=== PATIENT | female | born 2005 | race Caucasian/White ===

== ENCOUNTER 2025-02-11 20:35 | Emergency (ER) | payer BC, SELFPAY ==
[2025-02-11] VITALS (14 sets, daily range): BP systolic 121–143; BP diastolic 80–99; PULSE 86–115; RESP 0–36; TEMP 36.4; O2SAT 95–100; BMI 20.2
--- NOTE | 2025-02-11 22:14 | ED.GENADULT ---
HPI - General Adult General Chief complaint: Anxiety Stated complaint: Rapid heartrate, tingling in limbs, blurred vision Time Seen by Provider: 02/11/25 22:14 History of Present Illness HPI narrative: Arrives complaining of a mystery illness for the past 5 years that my doctors can't figure out. States she feels shakiness , fatigue, muscle weakness , and frequent nausea and vomiting. Currently wearing a Holter monitor. Alert and oriented, ABCs intact at this time. 19-year-old woman presenting to the emergency depar tment with concern of passing out. Fabi experienced her heart pounding and stabbing in her arms and ended up vomiting. Historically can be also week extremities with this. Apparently has had visits through the emergency department as well as seen Neurology. Has had head imaging in the past. 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 Not thought to have POTS but is currently being monitored with a ZIO patch. Can spontaneously pass out. Not necessarily orthostatic. Notes that does experience tachycardia and that resting heart rate is in the 120s. Is worried is that might at some point. Grandmother has a seizure disorder Has had extensive evaluations for and for episodes where she can have rapid heart rate. Have a history panic attacks but says that this is not that; that her panic attacks are much worse. Reviewing workup in the past again denies that has had any head imaging only noting an EKG. We decided to proceed with basic head CT at that point. Review of records later reveals normal MRI of the brain just under a year ago. Related Data Home Medications ?Medication ?Instructions ?Recorded ?Confirmed hydroxyzine HCl 10 mg tablet 10 mg PO QHS 02/11/25 02/11/25 omeprazole 20 mg capsule,delayed 20 mg PO DAILY 02/11/25 02/11/25 release ondansetron HCl 4 mg tablet 4 mg PO Q8-12H PRN 02/11/25 02/11/25 propranolol 10 mg tablet 10 mg PO BID 02/11/25 02/11/25 quetiapine 100 mg tablet (Seroquel) 100 mg PO DAILY 02/11/25 02/11/25 spironolactone 100 mg tablet 100 mg PO DAILY 02/11/25 02/11/25 (Aldactone) venlafaxine PO 02/11/25 Allergies Allergy/AdvReac Type Severity Reaction Status Date / Time No Known Drug Allergies Allergy Verified 02/11/25 20:59 Review of Systems Status of ROS: Reports: 6 or more systems reviewed and unremarkable except as noted in History and below Exam Narrative: Exam Narrative: Pleasant. Tall. Numerous facial piercings. Skin is warm and dry. Mildly elevated heart rate to just tachycardic. Regular rhythm. Skin is warm and dry. Well-perfused. Lungs are clear. Cranial nerves 2-12 intact. Const: Vital Signs, click to edit/add: Vital Signs - 24 hr 02/11/25 20:54 02/11/25 21:06 02/11/25 21:43 Temperature 97.5 F L Pulse Rate 95 Pulse Rate [Left P ulse Oximeter] Pulse Rate [Pulse Oximeter] 102 H Pulse Rate [orthos tatic sitting Left Pulse Oximeter] Pulse Rate [orthos tatic standing Lef t Pulse Oximeter] Respiratory Rate 20 16 Blood Pressure Blood Pressure [Ri ght Upper Arm] 135/97 H Blood Pressure [or thostatic lying Ri ght Arm] Blood Pressure [or thostatic sitting Right Arm] Blood Pressure [or thostatic standing Right Arm] Pulse Oximetry 96 97 99 Oxygen Delivery Me thod Room Air 02/11/25 22:00 02/11/25 22:01 02/11/25 22:30 Temperature Pulse Rate 87 86 101 H Pulse Rate [Left P ulse Oximeter] Pulse Rate [Pulse Oximeter] Pulse Rate [orthos tatic sitting Left Pulse Oximeter] Pulse Rate [orthos tatic standing Lef t Pulse Oximeter] Respiratory Rate 26 H 18 16 Blood Pressure 121/85 Blood Pressure [Ri ght Upper Arm] Blood Pressure [or thostatic lying Ri ght Arm] Blood Pressure [or thostatic sitting Right Arm] Blood Pressure [or thostatic standing Right Arm] Pulse Oximetry 95 96 98 Oxygen Delivery Me thod 02/11/25 22:31 02/11/25 23:00 Temperature Pulse Rate 104 H Pulse Rate [Left P ulse Oximeter] 98 Pulse Rate [Pulse Oximeter] Pulse Rate [orthos tatic sitting Left Pulse Oximeter] 102 H Pulse Rate [orthos tatic standing Lef t Pulse Oximeter] 115 H Respiratory Rate 9 L Blood Pressure 130/99 H Blood Pressure [Ri ght Upper Arm] Blood Pressure [or thostatic lying Ri ght Arm] 131/80 Blood Pressure [or thostatic sitting Right Arm] 132/88 Blood Pressure [or thostatic standing Right Arm] 143/99 H Pulse Oximetry 96 Oxygen Delivery Me thod Documenting provider has reviewed patient's vital signs: yes Course Vital Signs Vital signs: Initial Vital Signs Temperature 97.5 F L 02/11/25 20:54 Temperature Source Temporal Artery Scan 02/11/25 20:54 Pulse Rate 102 H 02/11/25 20:54 Respiratory Rate 20 02/11/25 20:54 Respiratory Effort Normal, Spontaneous, Non-Labored 02/11/25 20:54 Respiratory Depth Normal 02/11/25 20:54 Respiratory Pattern Normal 02/11/25 20:54 Blood Pressure 135/97 H 02/11/25 20:54 Blood Pressure Mean 109 H 02/11/25 20:54 Pulse Oximetry 96 02/11/25 20:54 Oxygen Delivery Method Room Air 02/11/25 20:54 Vital Signs Temperature 97.5 F L 02/11/25 20:54 Pulse Rate 102 H 02/11/25 20:54 Respiratory Rate 20 02/11/25 20:54 Blood Pressure 135/97 H 02/11/25 20:54 Pulse Oximetry 96 02/11/25 20:54 Oxygen Delivery Method Room Air 02/11/25 20:54 Temperature 97.5 F L 02/11/25 20:54 Pulse Rate 93 02/12/25 00:02 Respiratory Rate 23 02/11/25 23:03 Blood Pressure 115/69 02/12/25 00:02 Pulse Oximetry 99 02/12/25 00:02 Oxygen Delivery Method Room Air 02/11/25 20:54 Medications Administered Medications: Discontinued Medications Generic Name Dose Route Start Last Admin Trade Name Freq PRN Reason Stop Dose Admin Sodium Chloride 1,000 mls @ 1,000 mls/hr 02/11/25 22:29 02/12/25 00:12 0.9 % Sodium Chloride 1000 Ml IV 02/11/25 23:28 Infused .Q1H ONE Infusion Medical Decision Making MDM Narrative Medical decision making narrative: I discussed initially that doubtful that will be able to offer more information during this time in the emergency department. Concerning monitor though for safety/stability. And look for evidence of recent cardiac injury. Orthostatics are symptomatic but negative. With orthostatic complaints is given a L normal saline. With information initially obtained that was without recent head imaging decided to proceed with this. Discovered later relatively recent MRI. Head CT independently reviewed by me looks to be without abnormality. Radiology over-read confirms. Mildly elevated white count in labs but otherwise unremarkable. No events during time in the emergency department. See patient discharge plan for further discussion Stay well-hydrated. Please follow-up your primary care clinic further investigation. Turn in your ZIO patch as planned. Was a pleasure caring for you today. Medical Records Medical records reviewed: Yes I reviewed the patient's medical records Lab Data Lab results reviewed: Yes I reviewed the patient's lab results Labs: Lab Results 02/11/25 02/11/25 Range/Units 22:28 22:40 WBC 11.58 H (4.50-11.00) K/uL RBC 4.86 (4.00-5.20) m/uL Hgb 14.9 (12.0-16.0) gm/dL Hct 43.3 (33.0-51.0) % MCV 89 (80-100) fL MCH 31 (26-34) pg MCHC 34 (32-36) gm/dL RDW Coeff of Ronal 12.2 (11.5-15.5) % Plt Count 303 (140-440) K/uL Neut % (Auto) 66.1 (42.0-72.0) % Lymph % (Auto) 23.1 (20-44) % Garden % (Auto) 9.4 (0.0-11.0) % Eos % (Auto) 0.3 (0.0-7.0) % Baso % (Auto) 0.2 (0.0-3.0) % Neut # (Auto) 7.70 H (1.7-7.0) K/uL Lymph # (Auto) 2.70 (0.90-2.90) K/uL Garden # (Auto) 1.10 H (0.00-0.90) K/UL Eos # (Auto) 0.00 (0.00-0.50) K/uL Baso # (Auto) 0.00 (0.00-0.30) K/uL Abs Immat Gran (auto) 0.10 (0.00-0.30) K/uL Imm/Tot Granulo (auto) 0.9 % Sodium 136 (135-149) mmol/L Potassium 3.7 (3.6-5.1) mmol/L Chloride 99 (96-114) mmol/L Carbon Dioxide 29 (20-32) mmol/L Anion Gap 8 (7-15) mEq/L BUN 10 (5-24) mg/dL Creatinine 0.7 (0.5-1.5) mg/dL Estimated Creat Clear 133.11 Estimated GFR 127 ml/min Glucose 101 (60-115) mg/dL Calcium 9.7 (8.4-10.6) mg/dL Troponin I < 0.01 (0.01-0.04) ng/mL POC Troponin I 0.00 L (0.01-0.04) ng/ml Discharge Plan Discharge Clinical Impression: Tachycardia, Orthostatic tremor Patient Disposition: Home w/ Parent or Adult Condition: Improved Additional Instructions: Stay well-hydrated. Please follow-up your primary care clinic further investigation. Turn in your ZIO patch as planned. Was a pleasure caring for you today. Prescriptions: No Action venlafaxine [Effexor XR] PO quetiapine [Seroquel] 100 mg tablet 100 mg PO DAILY propranolol 10 mg tablet 10 mg PO BID hydroxyzine HCl 10 mg tablet 10 mg PO QHS omeprazole 20 mg capsule,delayed release(DR/EC) 20 mg PO DAILY spironolactone [Aldactone] 100 mg tablet 100 mg PO DAILY ondansetron HCl 4 mg tablet 4 mg PO Q8-12H PRN Follow Up/Referrals: Provider,Not a Local [Non-Staff, Family Practice] Stand Alone Forms: [email or web address] Info Instructions
--- OUTSIDE RECORDS SUMMARY | 2025-02-11 22:45 | XMS_ITS | Encounter Summary ---
Author Organization [facility] Address [address] [place] [address] Care Team Providers Care Stores Clerk Name Role Phone Unavailable Primary Care Provider Unavailabl e Encounter Details Date Type Department Care Team (Late st Contact Info) Description 08/22/2024 Orders Only Division of Endocrinology in [place], [place] [address] [place] [address] [facility], Provider, Gender Incongruence, Unspecified Social History Tobacco Use Types Packs/Day Years Used Date Smoking Tobacco: Never Passive Smoke Exposure: Never PHQ-2 Answer Date Recorded PHQ-2 Score 2 05/14/2023 Depression Answer Date Recor ded PHQ-9 Total Score (max 27) 11 05/14 Nutrition Answer Date Recorded Nutrition: EVOO Fat Source Unknown 12/14 Nutrition: Servings of Fruits/Vegetables per Day Not on file 12/14/2022 Dental Answer Date Recorded Dental: Regular Dentist Unknown 12/15/19 Sex and Gender Information Value Date Recorded Sex Assigned at Male 03/23/2023 11:02 AM CDT Legal Sex Female 8:29 AM CDT Gender Identity Transgender Female 03/23/2023 11 :02 AM CDT Sexual Orientation Bisexual 03/23/2023 11 :02 AM CDT documented as of this encounter Plan of Treatment Not on file documented as of this encounter Visit Diagnoses Diagnosis Gender Incongruence, Unspecified documented in this encounter Additional Health Concerns Assessment Noted Time PHQ-9 Depression Total Score: 11 023 1:07 PM CDT documented as of this encounter
--- OUTSIDE RECORDS SUMMARY | 2025-02-11 22:45 | XMS_ITS | Clinical Summary ---
Author Organization [facility] Address [address] [place] [address] Care Team Providers Care Dentist Private Practice Name Role Phone Unavailable Primary Care Provider Unavailabl e Source Comments Patient records contain information from all sites at [facility]. For routine questions regarding patient records, call [phone] during business hours, M-F 8:00 AM - 5:00 PM Central Time. Record requests for emergency care only can be directed to [phone] at any time.[facility] Medications venlafaxine XR (EFFEXOR-XR) 150 mg 24 hr capsuleIndicati ons:Anxiety Take 1 capsule (150 mg total) by mouth daily with breakfast. 90 capsule 1 05/14/2023 Active venlafaxine XR (EFFEXOR-XR) 75 mg 24 hr capsuleIndicati ons:Anxiety Take 1 capsule (75 mg total) by mouth daily with breakfast. 90 capsule 1 05/14/2023 Active QUEtiapine (SEROquel) 50 mg tabletIndicatio ns:Anxiety Take 1 tablet (50 mg total) by mouth at bedtime. 90 tablet 1 05/14/2023 Active hydrOXYzine (VISTARIL) 25 mg capsuleIndicati ons:Anxiety Take 1 capsule (25 mg total) by mouth 3 (three) times a day as needed for anxiety. 90 capsule 3 05/14/2023 Active Active Problems Problem Noted Date Diagnosed Date Obesity Body Mass Index 30-39.9 Adult 05/14/2023 Social History Tobacco Use Types Packs/Day Years Used Date Smoking Tobacco: Never Passive Smoke Exposure: Never Tobacco Cessation:Counseling Given: Not Answered PHQ-2 Answer Date Recorded PHQ-2 Score 2 [...] Orientation Bisexual 03/23/2023 11 :02 AM CDT Last Filed Vital Signs Vital Sign Reading Time Taken Comments Blood Pressure 110/72 05/14/2023 1:03 PM CDT Pulse 105 05/14/2023 1:03 PM CDT Temperature 36.4 C (97.6 F) 05/14/2023 1:03 PM CDT Respiratory Rate 16 05/14/2023 1:03 PM CDT Oxygen Saturation - - Inhaled Oxygen Concentration - - Weight 95.7 kg (210 lb 15.7 oz) 05/14/2023 1:03 PM CDT Height 176 cm (5' 9.29) 05/14/2023 1:03 PM CDT Body Mass Index 30.9 05/14/2023 1:03 PM CDT Plan of Treatment Health Maintenance Due Date Last Done Comments TB Screening during Well Child Visit 2004 Tobacco Cessation counseling 2004 1 week Well Child Check-Up 2004 1 month Well Child Check-Up 2004 2 month Well Child Check-Up 2004 4 month Well Child Check-Up 2004 9 month Well Child Check-Up 04/30/2005 15 month Well Child Check-Up 10/31/2005 18 month Well Child Check-Up 01/28/2006 2 year Well Child Check-Up 07/31/2006 30 month Well Child Check-Up 01/28/2007 3 year Well Child Check-Up 07/31/2007 Well Child Check-Up Completed in Past Year 07/31/2007 5 year Well Child Check-Up 07/31/2009 6 year Well Child Check-Up 07/31/2010 7 year Well Child Check-Up 07/31/2011 8 year Well Child Check-Up 07/31/2012 10 year Well Child Check-Up 07/31/2014 12 year Well Child Check-Up 07/31/2016 13 year Well Child Check-Up 07/31/2017 14 year Well Child Check-Up 07/31/2018 Vision Screening during Well Child Visit 2018 15 year Well Child Check-Up 07/31/2019 16 year Well Child Check-Up 08/26/2020 17 year Well Child Check-Up 07/31/2021 18 year Well Child Check-Up 07/31/2022 19 year Well Child Check-Up 07/31/2023 20 year Well Child Check-Up 07/31/2024 Well Child Check-Up ([facility]) 07/31/2024 Depression Screening (Annual PHQ-2) 09/06/2024 Glucose Test for Med Monitoring 08/09/2025 08/09/2024, 12/27/2023, 12/22/2023, Additional history exists DTaP,Tdap,and Td Vaccines (7 - Td or Tdap) 04/12/2027 04/12/2017, 11/13/2009, 03/11/2006, Additional history exists Hepatitis B Vaccines Completed 03/13/2005, 2004, 2004 Pneumococcal vaccine (0-49 years) Aged Out 03/11/2006, 03/13/2005, 2004, Additional history exists No longer eligible based on patient's age to complete this topic IPV Vaccines Completed 11/13/2009, 04/2005, 2004, Additional history exists HPV Vaccines Completed 05/12/2019, 04/12/2017 Meningococcal Vaccine Completed 11/08/2020, 017 HIV Screening Completed 05/14/2023 Hepatitis C Screening Completed 05/14/2023 COVID-19 Vaccine Completed 06/28/2024, , 02/18/2021, Additional history exists Influenza Vaccine Completed 06/28/2024, , 07/06/2013, Additional history exists Anemia/Iron Deficiency Screening During Well Child Visit (if High Risk Menstruating Female) Completed 11/28/2024, 08/09/2024, 04/25/2024, Additional history exists Procedures Procedure Name Priority Date/Time Associated Diagnosis Comments HCV AB SCRN W/REFLEX TO HCV PCR, S Routine 05/14/2023 2:04 PM CDT Screening Test Laboratory HIV-1/-2 AG AND AB SCREEN, PLASMA Routine 05/14/2023 2:04 PM CDT Human Immunodeficiency Virus Screening HEMOGLOBIN A1C, B Routine 05/14/2023 2:0 4 PM CDT Screening Examination Diabetes Mellitus from Last 3 Months or Most Recently Relevant to Health Maintenance Results * HIV-1/-2 Ag and Ab Screen, Plasma (05/14/2023 2:04 PM CDT) Pathologist [facility] HIV Ag/Ab Screen, P Negative Negative 05/17/2023 11:46 AM CDT [facility] Comment: Negative result does not rule out HIV infection. If exposure to HIV infection occurred <14 days ago, contact the laboratory to request addition of HIV-1/HIV-2 RNA detection, Plasma (HIP12). HIV-1 p24 Ag Screen, P Negative Negative 05/17/2023 11:46 AM CDT [facility] Comment: Negative result does not rule out HIV infection. If exposure to HIV infection occurred <14 days ago, contact the laboratory to request addition of HIV-1/HIV-2 RNA detection, Plasma (HIP12). HIV-1 Ab Screen, P Negative Negative 05/17/2023 11:46 AM CDT [facility] Comment: Negative result does not rule out HIV infection. If exposure to HIV infection occurred <14 days ago, contact the laboratory to request addition of HIV-1/HIV-2 RNA detection, Plasma (HIP12). HIV-2 Ab Screen, P Negative Negative 05/17/2023 11:46 AM CDT [facility] Comment: Negative result does not rule out HIV infection. If exposure to HIV infection occurred <14 days ago, contact the laboratory to request addition of HIV-1/HIV-2 RNA detection, Plasma (HIP12). Blood (Blood, Venous) 05/14/2023 2:04 PM CDT 05/15/2023 4:05 PM CDT Mirella Uribe M.D. LAB MICROBIOLOGY - BLOOD O RDERABLES Final Result Performing Organization Address [facility]/ZIP Co de Phone Number [facility] [address] [place] [address], [facility] [place] [address] [place] [address] * HCV Ab Scrn w/Reflex to HCV PCR, Serum (05/14/2023 2:04 PM CDT) HCV Ab Screen, S Negative Negative 05/14/20 7:29 PM CDT [facility] Comment: Biotin has been identified by the typewriter ribbon winder as a potential interfering substance. Higher concentrations of biotin may be found in multivitamins, hair/nail supplements, and workout supplements. If the result does not match clinical observations, repeat testing after patient refrains from the use of supplements for at least 12 hours. Blood (Blood, Venous) 05/14/2023 2:04 PM CDT 05/14/2023 7:02 PM CDT [facility] LAB - 05/14/2023 7:29 PM CDT Specimen Information: Specimen ID: [id number] Specimen Type: Blood Specimen Collection Start Date: 05/14/2023 2:04 PM Specimen Received Date: 05/14/2023 7:02 PM Specimen ID: [id number] Specimen Type: Blood Specimen Collection Start Date: 05/14/2023 2:04 PM Specimen Received Date: 05/14/2023 7:02 PM Mirella Uribe M.D. LAB MICROBIOLOGY - BLOOD O RDERABLES Final Result [facility] [address] [place] [address], [facility] in [place] [address] [place] [address] * Hemoglobin A1c (05/14/2023 2:04 PM CDT) Hemoglobin A1c, B 5.0 4.2 - 5.6 % 05/14/2023 2:56 PM CDT [facility] Blood (Blood, Venous) 05/14/2023 2:04 PM CDT 05/14/2023 2:09 PM CDT us Mirella Uribe M.D. LAB BLOOD ADD-ON Final Res ult [facility] [address] [place] [address], [place] [facility] in [place] [address] [place] [address] from Last 3 Months or Most Recently Relevant to Health Maintenance Insurance [facility]
--- OUTSIDE RECORDS SUMMARY | 2025-02-11 22:45 | XMS_ITS | Clinical Summary ---
Author Organization [facility] Address [address] [place] [id number] Care Team Providers Care Sheltered Workshop Executive Director Name Role Phone Eben Wen MD Primary Care Provider [phone] Serene Hagen Ahsan Allergies No known active allergies Medications ondansetron (ZOFRAN ODT) 4 mg disintegrating tabletIndications: Nausea Place 1 Tablet (4 mg) on the tongue every 8 hours if needed for Nausea/Vomit ing. 15 Tablet 4 Active omeprazole 20 mg tabletIndications: Nausea,Elevated liver enzymes,Nausea and vomiting, unspecified vomiting type,Acute gastritis, presence of bleeding unspecified, unspecified gastritis type Take 1 Tablet (20 mg) by mouth once daily. 90 Tablet 3 4 Active QUEtiapine (SEROQUEL) 50 mg tabletIndications: Trauma and stressor-related disorder,Episode of recurrent major depressive disorder, unspecified depression episode severity,Generaliz ed anxiety disorder with panic attacks Take 1 Tablet (50 mg) by mouth at bedtime. 90 Tablet 3 4 Active polyethylene glycoL (MIRALAX) 17 gram/scoop powderIndications: Rectal bleeding,Rectal trauma, initial encounter Mix 1 scoop (17 g) in liquid then take by mouth once daily. 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 90 Tablet 1 5 Active propranoloL 10 mg tabletIndications: Generalized anxiety disorder with panic attacks Take 1 tablet three times a day for anxiety 90 Tablet 1 5 Active hydrOXYzine pamoate 25 mg capsuleIndications :Trauma and stressor-related disorder,Generaliz ed anxiety disorder with panic attacks Take 1 Capsule (25 mg) by mouth 3 times daily if needed for Anxiety. 30 Capsule 3 5 Active venlafaxine 150 mg Extended-Release capsuleIndications :Trauma and stressor-related disorder,Generaliz ed anxiety disorder with panic attacks,Episode of recurrent major depressive disorder, unspecified depression episode severity Take 1 Capsule (150 mg) by mouth once daily in the morning. With 75 mg dose for a total AM dose of 225 mg 90 Capsule 3 5 Active venlafaxine 75 mg cp24 Extended-Release capsuleIndications :Trauma and stressor-related disorder,Generaliz ed anxiety disorder with panic attacks,Episode of recurrent major depressive disorder, unspecified depression episode severity Take 1 Capsule (75 mg) by mouth once daily with a meal. 90 Capsule 3 5 Active hydrOXYzine pamoate (VISTARIL) 25 mg capsuleIndications :Trauma and stressor-related disorder,Generaliz ed anxiety disorder with panic attacks Take 1 Capsule (25 mg) by mouth 3 times daily if needed for Anxiety. 30 Capsule 3 4 025 Discontin ued(Reord er (E-cancel not sent)) venlafaxine (EFFEXOR XR) 150 mg Extended-Release capsuleIndications :Trauma and stressor-related disorder,Episode of recurrent major depressive disorder, unspecified depression episode severity,Generaliz ed anxiety disorder with panic attacks Take 1 Capsule (150 mg) by mouth once daily in the morning. With 75 mg dose for a total AM dose of 225 mg 90 Capsule 3 4 025 Discontin ued(Reord er (E-cancel not sent)) venlafaxine (EFFEXOR XR) 75 mg cp24 Extended-Release capsuleIndications :Trauma and stressor-related disorder,Episode of recurrent major depressive disorder, unspecified depression episode severity,Generaliz ed anxiety disorder with panic attacks Take 1 Capsule (75 mg) by mouth once daily with a meal. 90 Capsule 3 4 025 Discontin ued(Reord er (E-cancel not sent)) Active Problems Problem Noted Date Diagnosed Date DELIA (generalized anxiety disorder) w panic attac ks 11/30/2024 MDD (major depressive disord er), recurrent episode, moderate 11/30/2024 Autism spectrum disorder 11/28/2024 Convulsions, unspecified convulsion type 024 Hypercholesterolemia 03/25/2022 History of gender dysphoria 09/11/2021 PTSD (post-traumatic stress disorder) 05/16/2021 Dujm-ct-xjvyfl transgender person 05/16/2021 Suicide attempt 05/15/2021 Anorexia 05/15/2021 Bulimia 05/15/2021 Acetaminophen toxicity, inte ntional self-harm, initial encounter 05/13/2021 Epigastric abdominal pain 05/13/2021 Has status as emancipated minor 05/13/2021 Current severe episode of ma lucio depressive disorder without psychotic features without prior episode Resolved Problems Problem Noted Date Diagnosed Date Resolved Date Asperger's syndrome 06/26/2024 11/29/19 Gynecomastia 03/12/2022 11/28/2024 NSAID overdose, intentional self-harm, initial encounter 05/13/2021 11/28/2024 Hypokalemia 05/13/2021 11/28/2024 Hypermetropia 06/01/2012 05/13/2021 No active medical problems 05/30/2012 0 05/13/2021 Encounters Date Type Department Care Team Description 02/08/2025 2:30 PM CDT Telemedicine [address] [phone] Hawa Zeng PsyD, LP Telehealth; Anxiety; Depression 02/08/2025 Travel 02/06/2025 10:10 AM CDT Office Visit [address] [phone] Eben Wen MD Follow Up (From Dr. Cobos last apt) 02/06/2025 Travel 01/15/2025 2:30 PM CDT Telemedicine [address] [phone] Hawa Zeng PsyD, JUANITA Telehealth; Anxiety; Depression; Psychiatric Problem; MH Trmt Plan 01/15/2025 Travel 12/22/[address] [place] [address] Hawa Zeng PsyD, JUANITA Form 12/19/2024 3:00 PM CDT Office Visit [address] [place] [address] Mariann Villalba MD Follow Up; Breast Problem (Lump in right breast, about a quarter size, occasionally painful, noticed it last night, smaller lump in left breast that is painful) 12/19/2024 Travel 11/29/2024 2:45 PM CDT Telemedicine [address] [place] [address] Hawa Zeng PsyD, JUANITA Telehealth; Mental Health Intake; Anxiety; Depression 11/29/2024 Travel 11/28/2024 10:15 AM CDT Office Visit [address] [place] [phone] Mariann Villalba MD Follow Up (Gender care) 11/28/2024 Travel 11/23/2024 Travel from Last 3 Months Immunizations Immunization Administration Dates Next Due COVID-19 VACCINE SPIKEVAX (M ODERNA 50MCG/0.5ML) 12YO+ PFS 06/28/2024 COVID-19 vaccine (Pfizer-Bio NTech 30mcg/0.3mL) 12YO+ JIMMIE-SUCROSE PF, MDV 05/04/2022 DTaP-HIB (TriHIBIT) 03/11/2006 RFuU-BtyC-QJO (Pediarix) 03/13/2005,2004,0 2004 DTaP-IPV (Kinrix) 11/13/2009 HIB PRP-OMP (PedvaxHIB) 2004,2004 HPV 9 (Gardasil 9) 05/12/2019,04/12/2017 Hepatitis A (Peds) 04/12/2017,05/30/2012 INFLUENZA, IIV3 PF (AGE >= 6 MO) 06/28/2024 Influenza Virus, Unspecified 07/06/2013 Influenza, IIV3 (Age 6-35 mos) 07/10/2005,2004 Influenza, IIV3 (Age >=3 years) 05/30/2012,07/02 Influenza, IIV4 07/10/2021 MENINGOCOCCAL VACCINE 2 VIAL 2MO-55YO (MENVEO) 11/08/2020,04/12/2017 MMR 11/13/2009,10/07/2005 Pneumococcal conj 7-Valent (Prevnar 7) 0 03/11/2006,03/13/2005,2004,10/31 Tdap 04/12/2017 Varicella Vaccine 11/13/2009,10/07/2005 Family History Medical History Relation Name Comments Suicidality Father Relation Name Status Comments Father Mother Alive Sister Alive Social History Tobacco Use Types Packs/Day Years Used Date Smoking Tobacco: Never Passive Smoke Exposure: Yes Smokeless Tobacco: Never Tobacco Cessation:Counseling Given: Yes Alcohol Use Standard Drinks/Week Comments No 0 (1 standard drink = 0.6 oz pur e alcohol) PHQ-2 Answer Date Recorded PHQ-2 TOTAL SCORE 4 02/08/2025 Social Connections Answer Date Recorded Do you often feel lonely or isolated from those around you? 4 02/06/2025 Financial Resource Strain Answer Date R ecorded Difficulty of Paying Living Expenses 1 02/06/2025 Difficulty of Paying Living Expenses 2 02/06/2025 Food Insecurity Answer Date Recorded Do you worry your food will run out before you are able to buy more? 2 02/06/2025 Transportation Needs Answer Date Record ed Does lack of transportation keep you from medica l appointments? 1 02/06/2025 Does lack of transportation keep you from work, meetings or getting things that you need? 1 02/06/2025 Housing Stability Answer Date Recorded What is your housing situation today? 2 02/06/2025 Interpersonal Safety Answer Date Record ed Are you being hit, kicked, p ushed or yelled at (see row info)? No 04/25/2024 Interpersonal Safety Abuse 12 - 18 Not on file 04/25/2024 Interpersonal Safety Ambulatory Vulnerability No t on file 04/25/2024 Utilities Answer Date Recorded Do you have trouble paying f or utilities (for example, heat, electricity, water, phone)? 2 02/06/2025 Sex and Gender Information Value Date Recorded Sex Assigned at Male 12/22/2023 1:29 PM CDT Legal Sex Female 1:29 PM CDT Gender Identity Not on file Sexual Orientation Not on file Occupation Industry Job Start Date Job End Date [employer] - Not on file Not on fi le Not on file Obstetrics History Last Filed Vital Signs Vital Sign Reading Time Taken Comments Blood Pressure 118/70 02/06/2025 10:08 AM CDT Pulse 96 02/06/2025 10:08 AM CDT Temperature 36.7 C (98 F) 04/25/2024 9:54 PM CDT Respiratory Rate 18 04/25/2024 9:54 PM CDT Oxygen Saturation 99% 02/06/2025 10:08 AM CDT Inhaled Oxygen Concentration - - Weight 68.9 kg (152 lb) 02/06/2025 10:08 AM CDT Height 178 cm (5' 10.08) 02/06/2025 10:08 AM CD T Body Mass Index 21.76 02/06/2025 10:08 AM CDT Plan of Treatment Upcoming Encounters Date Type Department Care Team (Late st Contact Info) Description 02/21/2025 11:45 AM CDT Telemedicine [facility] [address] [place] [phone] Hawa Zeng, Reynaldo, LP [address] [place] [address] Health Maintenance Due Date Last Done Comments Well Child Check for age 3-20 12/26/2024 12/27/2023, 05/12/2019, 04/12/2017, Additional history exists BMI (ht and wt on same day) for age 18+ 02/06/2026 02/06/2025, 05/16/2024, 02/18/2024, Additional history exists Depression screening for age 12+ 02/08/2026 02/08/2025, 01/15/2025, 11/29/2024, Additional history exists Tetanus booster 04/12/2027 04/12/2017 Hepatitis B series for 19+ Completed 03/13, 2004, 2004 Pneumococcal series for age 6-49 Aged Out 03/11/2006, 03/13/2005, 2004, Additional history exists No longer eligible based on patient's age to complete this topic Tdap Completed 04/12/2017 HPV series for age 9-26 Completed 05/12/2019, 04/12 HPV series for age 9-26 Completed 05/12/2019, 04/12 Meningococcal series for age 11-21 Completed 11/08/2020, 04/12/2017 COVID-19 vaccine series Completed 06/28/20, 05/04/2022, 02/18/2021, Additional history exists Influenza Vaccine Completed 06/28/2024, , 07/06/2013, Additional history exists HIV for age 15-65 Completed 08/09/2024 Hepatitis C screening for age 18-79 Completed 08/09/2024 Procedures Procedure Name Priority Date/Time Associated Diagnosis Comments BASIC METABOLIC PANEL Routine 02/06/2025 11:25 AM CDT Convulsions, unspecified convulsion type (HC) Yzwk-qx-stgcpo transgender person ANTINUCLEAR ANTIBODY BY IFA Routine 02/06/2025 11:25 AM CDT Convulsions, unspecified convulsion type (HC) SEDIMENTATION RATE Routine 02/06/2025 11 :25 AM CDT Convulsions, unspecified convulsion type (HC) C-REACTIVE PROTEIN Routine 02/06/2025 11 :25 AM CDT Convulsions, unspecified convulsion type (HC) EXTENDED HOLTER Routine 02/06/2025 11:02 AM CDT Syncope and collapse HEMOGLOBIN Routine 11/28/2024 11:20 AM CDT Gender dysphoria Ysmf-dl-foslsh transgender person ESTRADIOL Routine 11/28/2024 11:20 AM CDT Gender dysphoria Iqzh-pn-ccvnte transgender person TESTOSTERONE,TOTAL Routine 11/28/2024 11 :20 AM CDT Gender dysphoria Hhml-ja-iepxid transgender person ANTI HIV 1/2 Routine 08/09/2024 2:44 PM SKI PATROL DIRECTOR Screening for HIV (human immunodeficiency virus) ANTI HCV Routine 08/09/2024 2:44 PM SKI PATROL DIRECTOR Need for hepatitis C screening test from Last 3 Months or Most Recently Relevant to Health Maintenance Results * SEDIMENTATION RATE (02/06/2025 11:25 AM CDT) SED RATE BY MODIFIED WESTERGREN 6 < OR = 20 mm/h [facility] [place] Blood BLOOD SPECIMEN / Unknown 02/06/2025 11:25 AM CDT 02/06/2025 11:26 AM CDT Eben Wen MD HEMATOLOGY Final Resul t Interactive [employer] [facility] [address] [place] [address], [facility] [address] [place] [address] * ANTINUCLEAR ANTIBODY BY IFA (02/06/2025 11:25 AM CDT) GREGORY SCREEN, IFA NEGATIVE NEGATIVE [facility] [place] Comment: GREGORY IFA is a first line screen for detecting the presence of up to approximately 150 autoantibodies in various autoimmune diseases. A negative GREGORY IFA result suggests an GREGORY-associated autoimmune disease is not present at this time, but is not definitive. If there is high clinical suspicion for Sjogren's syndrome, testing for anti-SS-A/Ro antibody should be considered. Anti-Meka-1 antibody should be considered for clinically suspected inflammatory myopathies. AC-0: Negative International Consensus on GREGORY Patterns (https://doi.org/10.1515/bntp-5046-9334) For additional information, please refer to http://education.Glowbl/faq/SOU424 (This link is being provided for informational/ educational purposes only.) Blood BLOOD SPECIMEN / Unknown 02/06/2025 11:25 AM CDT 02/06/2025 11:26 AM CDT Eben Wen MD CHEMISTRY Final Resul t [employer] [facility] [address] [place] [phone], [facility] [address] [place] [address] * C-REACTIVE PROTEIN (02/06/2025 11:25 AM CDT) C-REACTIVE PROTEIN <3.0 <8.0 mg/L [facility] [place] Blood BLOOD SPECIMEN / Unknown 02/06/2025 11:25 AM CDT 02/06/2025 11:26 AM CDT Eben Wen MD CHEMISTRY Final Resul t [employer] [facility] [address] [place] [phone], [facility] [address] [place] [phone] * BASIC METABOLIC PANEL (02/06/2025 11:25 AM CDT) GLUCOSE 69 65 - 99 mg/dL [facility] [place] Comment: Fasting reference interval UREA NITROGEN (BUN) 13 7 - 25 mg/dL [facility] [place] CREATININE 0.66 0.50 - 0.96 mg/dL [facility] [place] EGFR 129 > OR = 60 mL/min/1. 73m2 [facility] [place] BUN/CREATININE RATIO SEE NOTE: 6 - 22 (calc) [facility] [place] Comment: Not Reported: BUN and Creatinine are within reference range. SODIUM 139 135 - 146 mmol/L [facility] [place] POTASSIUM 4.3 3.5 - 5.3 mmol/L [facility] [place] CHLORIDE 101 98 - 110 mmol/L [facility] [place] CARBON DIOXIDE 31 20 - 32 mmol/L [facility] [place] ELECTROLYTE BALANCE 7 7 - 17 mmol/L (calc) [facility] [place] CALCIUM 10.0 8.6 - 10.2 mg/dL [facility] [place] Blood BLOOD SPECIMEN / Unknown 02/06/2025 11:25 AM CDT 02/06/2025 11:26 AM CDT us Eben Wen MD CHEMISTRY Final Resul t Performing Organization Address City/[facility]/ZIP Co de Phone Number [employer] [facility] [address] [place] [address], [place] [phone] [facility] [address] [place] [address] * HEMOGLOBIN (11/28/2024 11:20 AM CDT) HEMOGLOBIN 15.1 11.7 - 15.5 g/dL [facility] [place] Blood BLOOD SPECIMEN / Unknown 11/28/2024 11:20 AM CDT 11/28/2024 11:23 AM CDT Narrative [facility] - 11/29/2024 5:35 AM CDT FASTING:NO FASTING: NO us Mariann Villalba MD HEMATOLOGY Fin al Result [employer] [facility] [address] [place] [address], [place] [phone] [facility] [address] [facility] [place] [address] * (ABNORMAL) TESTOSTERONE,TOTAL (11/28/2024 11:20 AM CDT) TESTOSTERONE, TOTAL, MS 188(H) 2 - 45 ng/dL [facility] Comment: For additional information, please refer to https://education.ExtraFootie/faq/TotalTestosteroneLCMSMS (This link is being provided for informational/educational purposes only.) (Note) This test was developed and its analytical performance characteristics have been determined by [employer]. It has not been cleared or approved by the FDA. This assay has been validated pursuant to the CLIA regulations and is used for clinical purposes. [facility] [address] [address],[address] [place] [address] Zenon Gabriel MD, PhD Blood BLOOD SPECIMEN / Unknown 11/28/2024 11:20 AM CDT 11/28/2024 11:23 AM CDT [facility] - 12/01/2024 2:11 PM CDT FASTING:NO FASTING: NO Mariann Villalba MD CHEMISTRY Fin al Result [facility] [address] [place] [phone], [facility] [address] [place] [address], [address] [place] [address] * ESTRADIOL (11/28/2024 11:20 AM CDT) Pathologist [facility] ESTRADIOL 44 pg/mL [facility] [place] Comment: Reference Range Follicular Phase: 19-144 Mid-Cycle: 64-357 Luteal Phase: 56-214 Postmenopausal: < or = 31 Reference range established on post-pubertal patient population. No pre-pubertal reference range established using this assay. For any patients for whom low Estradiol levels are anticipated (e.g. males, pre-pubertal children and hypogonadal/post-menopausal females), the [facility] Estradiol, Ultrasensitive, LCMSMS assay is recommended (order code 14226). Please note: patients being treated with the drug fulvestrant (Faslodex(R)) have demonstrated significant interference in immunoassay methods for estradiol measurement. The cross reactivity could lead to falsely elevated estradiol test results leading to an inappropriate clinical assessment of estrogen status. [facility] order code [id number], Ultrasensitive LC/MS/MS demonstrates negligible cross reactivity with fulvestrant. Blood BLOOD SPECIMEN / Unknown 11/28/2024 11:20 AM CDT 11/28/2024 11:23 AM CDT Narrative [facility] - 11/29/2024 4:40 AM CDT FASTING:NO FASTING: NO Mariann Villalba MD SEND OUTS Fin al Result Performing Organization Address [facility]/ZIP Co de Phone Number Interactive [employer] [facility] [address] [facility] [address], [facility] [address] [facility] [place] [address] * ANTI HCV (08/09/2024 2:44 PM SKI PATROL DIRECTOR) HEPATITIS C ANTIBODY NON-REACTI VE NON-REACT SULTANA [facility] [place] Comment: HCV antibody was non-reactive. There is no laboratory evidence of HCV infection. In most cases, no further action is required. However, if recent HCV exposure is suspected, a test for HCV RNA (test code 93329) is suggested. For additional information please refer to http://education.ExtraFootie/faq/TCF53t2 (This link is being provided for informational/ educational purposes only.) Blood BLOOD SPECIMEN / Unknown 08/09/2024 2:44 PM SKI PATROL DIRECTOR 08/09/2024 2:45 PM SKI PATROL DIRECTOR Mariann Villalba MD SEND OUTS Fin al Result Performing Organization Address [facility]/ZIP Co de Phone Number [employer] [facility] [address] [facility] [place] [address], [place] [phone] [facility] [address] [facility] [place] [address] * ANTI HIV 1/2 [30389.0] (08/09/2024 2:44 PM SKI PATROL DIRECTOR) HIV AG/AB, 4TH GEN NON-REACT SULTANA NON-REACT SULTANA [facility] Comment: HIV-1 antigen and HIV-1/HIV-2 antibodies were not detected. There is no laboratory evidence of HIV infection. PLEASE NOTE: This information has been disclosed to you from records whose confidentiality may be protected by state law. If your state requires such protection, then the state law prohibits you from making any further disclosure of the information without the specific written consent of the person to whom it pertains, or as otherwise permitted by law. A general authorization for the release of medical or other information is NOT sufficient for this purpose. For additional information please refer to http://education.ExtraFootie/faq/ULG775 (This link is being provided for informational/ educational purposes only.) The performance of this assay has not been clinically validated in patients less than 2 years old. Blood BLOOD SPECIMEN / Unknown 08/09/2024 2:44 PM SKI PATROL DIRECTOR 08/09/2024 2:45 PM SKI PATROL DIRECTOR Mariann Villalba MD SEND OUTS Fin al Result [employer] [facility] [address] [place] [address], [facility] [address] [place] [phone] from Last 3 Months or Most Recently Relevant to Health Maintenance Insurance [id number] [id number] Advance Directives * Full Code (Latest Code Status on File) Date Activated Date Inactivated Comments 05/14/2021 12:03 AM 05/15/2021 12:34 AM Question Answer Comments Code Status Discussion: Not Discussed Care Teams Sheltered Workshop Executive Director Relationship Specialty Start Date End Date Eben Wen MD [address] [place] [address] PCP - General Family Practice 04/30/21 Serene Hagen [address] [place] [address] Health Related Social Needs Care Guide 02/07/25
[2025-02-11] MEDS: 0.9 % SODIUM CHLORIDE 1000 ml 1,000 ML IV (22:47)
[2025-02-11 23:04] LABS: Chloride* 99 mmol/L (96-114); Sodium* 136 mmol/L (135-149)
[2025-02-11 23:05] LABS: Basophils Percent Auto 0.2 % (0.0-3.0); Eosinophils Percent Auto 0.3 % (0.0-7.0); Hematocrit 43.3 % (33.0-51.0); Hemoglobin* 14.9 gm/dL (12.0-16.0); Immature Granulocytes Pct Auto 0.9 %; Lymphocytes Percent Auto 23.1 % (20-44); Mean Corpuscular HGB Conc 34 gm/dL (32-36); Mean Corpuscular Hemoglobin 31 pg (26-34); Mean Corpuscular Volume 89 fL (80-100); Monocytes Percent Auto 9.4 % (0.0-11.0); Neutrophils Percent Auto 66.1 % (42.0-72.0); Platelet Count* 303 K/uL (140-440); Potassium* 3.7 mmol/L (3.6-5.1); RDW Coefficient of Variation % 12.2 % (11.5-15.5); Red Blood Count 4.86 m/uL (4.00-5.20); White Blood Count* 11.58 K/uL (4.50-11.00)
[2025-02-11 23:07] LABS: Blood Urea Nitrogen* 10 mg/dL (5-24); Creatinine* 0.7 mg/dL (0.5-1.5); Est. Creatinine Clearance* 133.11; Estimated Glomerular Filt Rate 127 ml/min
[2025-02-11 23:08] LABS: Anion Gap 8 mEq/L (7-15); Calcium* 9.7 mg/dL (8.4-10.6); Carbon Dioxide* 29 mmol/L (20-32); Glucose* 101 mg/dL (60-115); Slide Review Reflex No
[2025-02-11 23:20] LABS: Troponin I* < 0.01 ng/mL (0.01-0.04)
[2025-02-12] VITALS: PULSE 89; O2SAT 99
[2025-02-12 00:02] VITALS: BP 115/69; PULSE 93; O2SAT 99
--- NOTE | 2025-02-12 00:09 | CRLHL7_ITS ---
For Patients: As a result of the Century Cures Act, medical imaging exams and procedure reports are released immediately into your electronic medical record. You may view this report before your referring provider. If you have questions, please contact your health care provider. INDICATION: Recurrent syncope. TECHNIQUE: CT head without contrast. COMPARISON: None. FINDINGS: CSF spaces: Within normal limits for age. Brain parenchyma: The cooper-white differentiation is maintained. No sign of mass, hemorrhage, or midline shift. Skull base and calvarium: The visualized paranasal sinuses and mastoid air cells demonstrate no acute or significant findings. The visualized orbits are grossly unremarkable. No skull fractures. IMPRESSION: No acute intracranial abnormality. Please note that all CT scans at this facility use dose modulation, iterative reconstruction, and/or weight-based dosing when appropriate to reduce radiation dose to as low as reasonably achievable. Dictated by Joaquim Mohr MD @ 02/12/2025 12:38:00 AM (Electronically Signed)
== END 2025-02-12 00:56 | disposition home or self-care (01) ==
PROVIDERS: Emergency Provider Family Medicine; PCP Family Medicine
DX: R00.0 Tachycardia, unspecified (principal); G25.2 Other specified forms of tremor
CPT/HCPCS: 36415; 70450; 80048; 84484; 85025; 94761; 99284; J7030